=== PATIENT | male | born 1995 | race Hispanic/Latino ===

== ENCOUNTER 2024-03-23 11:17 | Emergency (ER) | payer MEDICAID, OTHER ==
[~2024-03-23] VITALS: Ht 170.2 cm; Wt 72.6 kg
[2024-03-23] MEDS ORDERED: AMOX1TAB16 PO (12:50)
[2024-03-23 12:54] VITALS: BP 121/86; PULSE 65; RESP 18; O2SAT 99
[2024-03-23] MEDS: cefTRIAXone 1G VIAL IM ONE (12:56)
[2024-03-23] MEDS: KETOROLAC 15MG/ML VIAL (15MG/ML) IM ONE (12:56)
== END 2024-03-23 13:14 | disposition home or self-care (01) ==
LOC: EDH 11:17
DX: M25.441 Effusion, right hand (principal)
CPT/HCPCS: 99284; 73140; 96372 ×2; J0696; J1885